=== PATIENT | male | born 1990 | race Caucasian/White ===

== ENCOUNTER 2021-02-02 09:53 | Emergency (ER) | payer BC ==
[~2021-02-02] VITALS: Ht 185.4 cm; Wt 113.4 kg
[~2021-02-02 09:53] MED LIST: AMOXICILLIN500 M1 PO; AMOXIL 875 MG875 M1 PO; ATIVAN0.5 MG PO; CLONAZEPAM 1 MG1 M1 PO; LOTRIMIN30 GM TP; MEDROLDOSEPACK PO; NOHOMEMEDICATIONS; NORCO 5-325 TA1 EACH PO; PAXIL; PERIACTIN; TOPAMAX 100 MG100 MG PO; TOPAMAX50 MG PO; TRAMADOL 50 MG50 MG PO; ULTRAM 50MG TAB50 MG PO; VISTARIL 25 MG25 M1 PO
[2021-02-02 10:28] LABS: ABSOLUTE NEUTROPHILS 2.8 thou/uL (1.4-8.2); BASOPHILS 0.4 % (0.0-2.0); HEMATOCRIT 45.6 % (42.0-52.0); HEMOGLOBIN 15.6 gm/dL (14.0-18.0); LYMPHOCYTES 31.2 % (24.0-44.0); MCH 33.1 pg (26.0-34.0); MCHC 34.2 g/dL (28.0-37.0); MCV 96.9 fL (80.0-100.0); MONOCYTES 12.2 % (1.0-8.0); PLATELET COUNT 177 thou/uL (150-400); POLYS 54.2 % (36.0-66.0); RDW 13.3 % (10.5-14.5); WBC 5.2 thou/uL (4.0-11.0)
[2021-02-02 10:38] LABS: ANION GAP 10 mmol/L (7-16); BUN 12 mg/dL (7-18); CALCIUM 9.3 mg/dL (8.5-10.1); CHLORIDE 99 mmol/L (98-107); CO2 26 mmol/L (21-32); GLUCOSE 100 mg/dL (74-106); POTASSIUM 3.8 mmol/L (3.5-5.1); SODIUM 135 mmol/L (136-145)
[2021-02-02 10:46] LABS: AMP/METHAMP Negative (Negative); BARBITURATES Negative (Negative); BENZODIAZEPINES Negative (Negative); COCAINE Negative (Negative); METHADONE Negative (Negative); OPIATES Negative (Negative); PCP Negative (Negative)
[2021-02-02 10:49] LABS: ALBUMIN 4.2 g/dL (3.4-5.0); MAGNESIUM 1.8 mg/dL (1.8-2.4); SGOT 37 U/L (15-37); SGPT 79 U/L (16-63); TOTAL BILIRUBIN 0.4 mg/dL (0.2-1.0); TOTAL PROTEIN 8.3 g/dL (6.4-8.2); TROPONIN-I <0.06 ng/mL (<0.06)
[2021-02-02 12:19] VITALS: BP 150/109
--- NOTE | 2021-02-02 17:32 | EKG ---
[address] [address] ELECTROCARDIOGRAM REPORT Name: ARLYN FORD Room #: DEP Eleanor#: [id number] Admission: 02/02/21 Attend Phys: Discharge: 02/02/21 Date of : 89 Report #: [id number] [facility] ED Test Date: 2021-02-02 Test Time: 10:05:16 Pat Name: ARLYN FORD Department: Room: Gender: Inspection Machine Tender: ELANA : 1990 Requested By: Mahad Disla Order Number: [id number] MD: Osman Mancera Measurements Intervals [place] Rate: 115 P: 56 AR: 159 QRS: 43 QRSD: 89 T: 13 QT: 330 QTc: 457 Interpretive Statements Sinus tachycardia Poor R wave progression No previous ECG available for comparison Electronically Signed On 02-02-2021 17:32:13 CDT by Osman Mancera [email or web address] <ELECTRONICALLY SIGNED> By: Osman Mancera MD, [facility] 02/02/21 1732 1005 1005 Osman Mancera MD, FACC /EPI
== END 2021-02-02 12:21 | disposition home or self-care (01) ==
LOC: ER 09:53
PROVIDERS: Emergency Medicine
DX: R55 Syncope and collapse (principal); R00.2 Palpitations; Z79.899 Other long term (current) drug therapy